=== PATIENT | female | born 1965 | race American Indian/Alaskan Native ===

== ENCOUNTER 2016-11-26 12:37 | Emergency (ER) | payer SELFPAY ==
[2016-11-26 13:18] VITALS: BP 102/66
--- NOTE | 2016-11-26 13:44 | Emergency Department Report ---
ED Extremity Problem HPI - General Chief complaint: Extremity Injury, Lower Stated complaint: LEFT FOOT PAIN Time Seen by Provider: 11/26/16 13:38 Source: patient Mode of arrival: Ambulatory Limitations: No Limitations - History of Present Illness Initial comments: 51-year-old female past medical history hysterectomy, appendectomy presents with complaint of 2-3 weeks of worsening left lower extremity pain and swelling. Patient complaining of pain near her fourth and fifth left distal toe regions with some associated swelling. Patient also complaining of some left lower extremity swelling. Denies any redness or discoloration of toes. Patient states that she works for long hours standing. Denies any direct trauma. MD Complaint: extremity pain Onset/Timin -: week(s) Location: left, lower extremity History of Same: No Severity scale (0 -10): 2 Quality: aching Consistency: intermittent Worsens with: walking - Related Data Previous Rx's Medication Instructions Recorded Last Taken Type Naproxen 500 mg PO BID PRN #30 tablet 11/26/16 Unknown Rx Allergies Allergy/AdvReac Type Severity Reaction Status Date / Time No Known Allergies Allergy Unverified 05/28/14 02:44 ED Review of Systems ROS: Stated complaint: LEFT FOOT PAIN Other details as noted in HPI ED Past Medical Hx - Past Medical History Previous Medical History?: No - Surgical History Hx Appendectomy: Yes Additional Surgical History: HYSTERECTOMY - Social History Smoking Status: Current Every Day Smoker Substance Use Type: None - Medications Home Medications: Home Medications Medication Instructions Recorded Confirmed Last Taken Type Naproxen 500 mg PO BID PRN #30 tablet 11/26/16 Unknown Rx ED Physical Exam - General Limitations: No Limitations General appearance: alert, in no apparent distress - Head Head exam: Present: atraumatic, normocephalic - Eye Eye exam: Present: normal appearance, PERRL, EOMI - ENT ENT exam: Present: mucous membranes moist - Neck Neck exam: Present: normal inspection - Respiratory Respiratory exam: Present: normal lung sounds bilaterally. Absent: respiratory distress - Cardiovascular Cardiovascular Exam: Present: regular rate, normal rhythm. Absent: systolic murmur, diastolic murmur, rubs, gallop - GI/Abdominal GI/Abdominal exam: Present: soft, normal bowel sounds - Extremities Exam Extremities exam: Present: normal inspection - Expanded Lower Extremity Exam Left Hip exam: Present: normal inspection, full ROM Upper Leg exam: Present: normal inspection, full ROM Knee exam: Present: normal inspection, full ROM Lower Leg exam: Present: normal inspection, full ROM Ankle exam: Present: normal inspection, full ROM Foot/Toe exam: Present: tenderness (some tenderness reproducible left lateral 5th toe, calloused skin near toe and in web space between 4th and 5th digits left foot) Neuro vascular tendon exam: Present: no vascular compromise (distal dorsalis pedis and PT pulses strong to palpation, cap refill less than 1 second all toes) 1 - discomfort here, calloused skin, no erythema or fluctuance - Back Exam Back exam: Present: normal inspection - Neurological Exam Neurological exam: Present: alert, oriented X3, CN II-XII intact, normal gait - Psychiatric Psychiatric exam: Present: normal affect, normal mood - Skin Skin exam: Present: warm, dry, intact, normal color. Absent: rash ED Course Vital Signs 11/26/16 11/26/16 13:15 14:22 Temperature 98.5 F Pulse Rate 84 Respiratory 16 18 Rate Blood Pressure 102/66 O2 Sat by Pulse 100 Oximetry ED Medical Decision Making - Medical Decision Making A/P: Left sided toe pain, foot calluses 1-advised patient to wear comfortable footwear and socks 2-x-ray unremarkable, possible soft tissue swelling consistent with external calluses seen on toes, no involvement of bone 3-duplex unremarkable 4- follow-up with podiatry, patient referred and NSAIDs when necessary Critical care attestation.: If time is entered above; I have spent that time in minutes in the direct care of this critically ill patient, excluding procedure time. ED Disposition Clinical Impression: Toe pain, left, Callus Disposition: TO HOME OR SELFCARE Is pt being admited?: No Does the pt Need Aspirin: No Condition: Stable Instructions: RICE Therapy (ED) Prescriptions: Naproxen 500 mg PO BID PRN #30 tablet PRN Reason: Pain Referrals: JOHN COSME DPM [Staff Physician] - 3-5 Days Forms: Work/School Release Form(ED) Time of Disposition: 15:24
[2016-11-26] MEDS ORDERED: MOTRIN PO ONE (14:11)
--- NOTE | 2016-11-26 14:11 | XRay Report ---
FINAL REPORT PROCEDURE: XR FOOT 2V LT TECHNIQUE: Two views of the left foot are obtained HISTORY: LT FOOT PAIN/SWELLING. AFFECTED 3RD, 4TH, 5TH, DIGIT. COMPARISON: No prior studies are available for comparison. FINDINGS: There is no fracture or dislocation. No arthritic changes are seen. Possible mild soft tissue swelling is seen in the toes. IMPRESSION: No bony abnormality is seen.
--- NOTE | 2016-11-27 07:31 | Vascular Lab Report ---
Left Lower Extremity Venous Duplex Study: Reason for Exam: Swelling of the left lower extremity. Comments on the Right: A limited duplex study was done of the proximal veins of the right lower extremity. All veins visualized are freely compressible without evidence of internal echogenicity. Flow is spontaneous and phasic throughout. No evidence of acute or chronic thrombus is seen in any of the vessels visualized. Comments on the Left: All veins visualized are freely compressible without evidence of internal echogenicity. Flow is spontaneous and phasic throughout. No evidence of acute or chronic thrombus is seen in any of the vessels visualized. Impression: No evidence of acute or chronic deep venous thrombosis in the left lower extremity.
== END 2016-11-26 15:36 | disposition home or self-care (01) ==
LOC: ED 12:37
DX: M79.675 Pain in left toe(s) (principal); L84 Corns and callosities; F17.210 Nicotine dependence, cigarettes, uncomplicated
CPT/HCPCS: 99284